=== PATIENT | male | born 1950 | race Caucasian/White ===

== ENCOUNTER 2019-08-12 21:59 | Inpatient (IN) ==
--- NOTE | 2019-08-13 00:19 | EKG Report ---
Test Performed on : 08/12/2019 11:17:52 PM Test Reason : Left Side Rib Pain. Blood Pressure : / mmHG Vent. Rate : 105 BPM Atrial Rate : 105 BPM P-R Int : 148 ms QRS Dur : 084 ms QT Int : 320 ms P-R-T Axes : 013 000 017 degrees QTc Int : 422 ms Sinus tachycardia. with premature atrial complexes. Otherwise normal ECG No previous ECGs available Unconfirmed Result
[2019-08-13 02:04] LABS: BASO# 0.05 X1000 (0.0-0.2); BASO% 0.5 % (0.0-0.8); EOS# 0.26 X1000 (0.0-0.7); EOS% 2.5 % (0.0-10.0); HEMATOCRIT 44.3 % (42.0-52.0); HEMOGLOBIN 14.8 g/dL (14.0-18.0); IMM GRAN# 0.08 X1000 (0.0-0.04); IMM GRAN% 0.8 % (0.0-0.5); LYMPH# 1.79 X1000 (1.2-3.4); LYMPH% 17.1 % (20.5-51.1); MCH 29.2 PG (27-31); MCHC 33.4 g/dL (33-37); MCV 87.4 FL (81-99); MONO# 0.84 X1000 (0.11-0.59); MPV 10.5 FL (7.4-10.4); NEUT# 7.46 X1000 (1.4-6.5); NEUT% 71.1 % (42.2-75.2); PLT 218 X1000 (130-400); RBC 5.07 XMIL (4.7-6.1); RDW 13.6 % (11.5-14.5); WBC 10.48 X1000 (4.8-10.8)
[2019-08-13 02:33] LABS: AGAP 11; ALB/GLOB RATIO 1.3; ALBUMIN 4.1 g/dL (3.5-5.0); ALKALINE PHOSPHATASE 72 U/L (32-122); BUN 22 mg/dL (8-22); CALCIUM 9.5 mg/dL (8.8-10.2); CHLORIDE 106 mmol/L (98-107); CK PROFILE 175 U/L (24-204); COSMO 288; CREATININE 1.2 mg/dL (0.7-1.2); ESTIMATED GFR > 60; GLUCOSE 167 mg/dL (70-104); GOT 17 U/L (10-34); GPT 19 U/L (10-44); POTASSIUM 4.6 mmol/L (3.5-5.1); SODIUM 141 mmol/L (136-145); TCO2 24 mmol/L (25-35); TOTAL BILIRUBIN 0.35 mg/dL (0.20-1.00); TOTAL PROTEIN 7.2 g/dL (6.3-8.3)
[2019-08-13] MEDS ORDERED: HEPARIN IV ONE (04:00)
--- NOTE | 2019-08-13 04:08 | PROVIDER DOCUMENTATION ---
This chart was entered by Nasrin Hu Scribe, acting as scribe for Kevon Messina DO. HPI-Chest Pain - General Chief Complaint: Rib Pain Stated Complaint: PAIN IN (L) RIBS AND SHOULDER Time Seen by Provider: 08/13/19 01:16 Source: patient Allergies/Adverse Reactions: Patient Allergies Allergy/AdvReac Type Severity Reaction Status Date / Time oxycodone HCl * Allergy Unknown Verified 08/13/19 01:06 [From OxyContin] Home Medications: Home Medication List Medication Instructions Recorded Confirmed Last Taken Type Esomeprazole [Nexium] 40 mg PO DAILY 11/18/13 08/13/19 11/18/13 11:00 History Levothyroxine [Synthroid] 125 mcg PO QAM 11/18/13 08/13/19 11/18/13 08:00 History Sumatriptan Succinate [Imitrex] 100 mg PO PRN PRN 08/13/19 08/13/19 Unknown History - History of Present Illness-CP Nature of Presenting Problem: pt is a 68 yr old male presenting with complaint of left lower chest pain. pain radiates to left shoulder, pain worse with deep inspiration. pt denies any shortness of breath, nausea or vomiting. pt also admits 1 week ago he had painful/tender area to left calf, pt reports he was able to feel knot in tender area. PCP ordered nsaids, pt reports he has taken nsaids with relief. pt admits family hx of blood clots, no personal hx of same Location: reports: other (left lower chest) Chest Pain Radiation: reports: shoulders (left shoulder) Quality of Pain: reports: sharp Severity in ED: moderate Onset/Duration: this evening Timing: still present Context/Activities at Onset: reports: light activity (driving) Modifying Factors: improves with: breathing (deep breathing increases pain) Associated Symptoms: denies: back pain, diaphoresis, nausea, shortness of breath , syncope, vomiting Nitro Today/Relief: no nitro taken today Aspirin Treatment Today: no aspirin today Prior Chest Pain/Cardiac Workup: reports: no prior chest pain, no prior cardiac workup Similar Symptoms Previously?: No Recently Seen Here or By Another Healthcare Provider: Yes (1 week ago seen by PCP) Review of Systems - Adult - REVIEW OF SYSTEMS - ADULT Constitutional: denies: fever, fatique Eyes: reports: no symptoms reported Ears, Nose, Mouth & Throat: reports: no symptoms reported Cardiovascular: reports: chest pain. denies: palpitations, syncope Respiratory: reports: pleurisy. denies: cough, dyspnea on exertion, shortness of breath Gastrointestinal: denies: abdominal pain, nausea Genitourinary: reports: no symptoms reported Musculoskeletal: denies: back pain, muscle aches, neck pain Integumentary: reports: no symptoms reported Neurological: denies: dizziness/vertigo, headache/migraines, syncope Psychiatric: reports: no symptoms reported Endocrine: reports: no symptoms reported Hematologic/Lymphatic: reports: no symptoms reported Allergic/Immunologic: reports: no symptoms reported All Other Systems: Reviewed and Negative Past History - Adult - PAST MEDICAL HISTORY-ADULT Review of Records: reports: Old Records Reviewed, Nursing Assessment Review, Medications Reviewed, Social history reviewed & non-contributory. Major Childhood Illnesses: reports: denies history Cardiovascular: reports: denies history Respiratory: reports: denies history Gastrointestinal: reports: GERD Obstetrical/Gynecological: reports: denies history Genitourinary: reports: denies history Musculoskeletal: reports: denies history Neurological: reports: headaches/migraines Endocrine/Immune: reports: thyroid disorder Other Conditions: reports: denies history - PRIOR SURGERIES/PROCEDURES Surgical/Procedure History: reports: appendectomy, orthopedic (extremity) - PRIOR HOSPITALIZATIONS Prior Hospitalizations: reports: none - IMMUNIZATION STATUS Childhood Immunizations: See Nurse Assessment Flu Vaccine: See Nurse Assessment - FAMILY HISTORY Family History: other (blood clot) - SOCIAL HISTORY Smoking: denies Substance Use: alcohol Alcohol Use Frequency: rarely Living Situation: family Physical Exam-General - PHYSICAL EXAM-ADULT Initial Vital Signs Reviewed: Yes - CONSTITUTIONAL General Appearance: appears well, alert, no apparent distress - EYES Eyes: PERRL/EOMI - HEAD, EARS, NOSE, MOUTH & THROAT HENMT: normocephalic/atraumatic, moist mucous membranes, normal ENT inspection - NECK Neck: non-tender, full range of motion, supple, normal inspection - RESPIRATORY Respiratory: chest non-tender, lungs clear, normal breath sounds, no respiratory distress, no accessory muscle use, pain on inspiration. negative: splinting - CARDIOVASCULAR Cardiovascular: normal peripheral pulses, regular rate, rhythm, no edema - GASTROINTESTINAL (ABDOMEN) Abdominal Exam: normal bowel sounds, non tender, soft - LYMPHATIC Lymphatic: no adenopathy - MUSCULOSKELETAL Back Exam: normal inspection, no CVA tenderness, no vertebral tenderness Extremity: normal range of motion, non-tender, normal gait, normal inspection - SKIN Integumentary: normal color, normal turgor, warm/dry - NEUROLOGIC Neurologic: grossly normal, no motor/sensory deficits - PSYCHIATRIC Psych/Mental Status: normal mood/affect Progress - PLAN OF CARE/RESULTS Progress/Plan/Lab Results: Vital Signs - 8 hr 08/12/19 21:59 Temperature 99.0 F Pulse Rate 87 Respiratory Rate 19 Blood Pressure 166/89 O2 Sat by Pulse Oximetry 98 Laboratory Results - last 24 hr 08/13/19 08/13/19 08/13/19 01:40 01:40 01:40 WBC 10.48 RBC 5.07 Hgb 14.8 Hct 44.3 MCV 87.4 MCH 29.2 MCHC 33.4 RDW Std Deviation 13.6 Plt Count 218 MPV 10.5 H Immature Gran % (Auto) 0.8 H Neut % (Auto) 71.1 Lymph % (Auto) 17.1 L Call[place] % (Auto) 8.0 Eos % (Auto) 2.5 Baso % (Auto) 0.5 Immature Gran # (Auto) 0.08 H Neut # (Auto) 7.46 H Lymph # (Auto) 1.79 [place] # (Auto) 0.84 H Eos # (Auto) 0.26 Baso # (Auto) 0.05 Sodium 141 Potassium 4.6 Chloride 106 Carbon Dioxide 24 L Anion Gap 11 BUN 22 Creatinine 1.2 Estimated GFR/1.73 m2 > 60 BUN/Creatinine Ratio 18 Glucose 167 H Calculated Osmolality 288 Calcium 9.5 Total Bilirubin 0.35 AST 17 ALT 19 Alkaline Phosphatase 72 Creatine Kinase 175 Troponin T High Sens 10 Total Protein 7.2 Albumin 4.1 Globulin 3.1 Albumin/Globulin Ratio 1.3 Orders Category Date Time Status CHEST-2 VIEWS [RAD] Stat Exams 08/12/19 22:[address] ANGIOGRM PULMONARY ARTERIES [CT] Stat Exams 08/13/19 01:26 Taken CBC WITH ELECTRONIC DIFF [HEME] Stat Lab 08/13/19 01:40 Completed CK PROFILE [SP CHEM] Stat Lab 08/13/19 01:40 Completed COMPREHENSIVE METABOLIC PANEL [CHEM] Stat Lab 08/13/19 01:40 Completed TROPONIN T HIGH SENSITIVITY Stat Lab 08/13/19 01:40 Completed Heparin Med 08/13/19 04:00 Discontinued 5,000 unit IV NOW ONE EKG [EKG] Stat Ther 08/12/19 23:13 Draft Result Diagrams: 08/13/19 01:40 08/13/19 01:40 - EKG 1 Time of EKG reading by physician:: 23:17 EKG Read and Signed by:: Kevon Messina EKG Interpretation (*Must complete 3 of following elements*): Abnormal Rate: 105 Rhythm: sinus tach with PACs [place]: normal QRS: other (PACs) OR Interval: normal ST Wave: normal - CONSULTS/PCP/HOSPITALIST Notification #1 *Consult/PCP/Hospitalist*: Dr Dubois Time Discussed: 04:07 Consult Disposition: Will see in ED Departure - Departure Date of Disposition Decision: 08/13/19 Time of Disposition Decision: 04:07 DIAGNOSIS: Pulmonary emboli Qualifiers: Pulmonary embolism type: multiple subsegmental (without acute cor pulmonale) Qualified Code(s): I26.94 - Multiple subsegmental pulmonary emboli without acute cor pulmonale Disposition: ADMITTED INPATIENT 09 Certified Medical Emergency: Emergent Condition: Serious Referrals and Follow-Ups: None,PCP [Primary Care Provider] - - Critical Care Note This patient required my direct & personal management of CC.: No Attestation - Physician/ CROW Attestation Patient care was provided by Advanced Practice Provider:: No The physician spent face to face time with patient:: Yes Advanced Practice Provider documentation review:: Supervising physician onsite and consulted in the evaluation and care of this patient. The physician did have a face to face encounter with the patient. This chart was documented by the indicated scribe, (Nasrin Hu Scribe) and accurately reflects the services I performed and decisions made by , Kveon Moralez DO, as attested by the provider's signature.
[2019-08-13] MEDS ORDERED: ZOFRAN IV PRN (04:40)
[2019-08-13] MEDS: HEPARIN 25,000 UNITS/D5W 25,000 UNIT/250 ML IV.SOLN IV SCH ×2 (04:53→21:17)
--- NOTE | 2019-08-13 05:48 | HISTORY AND PHYSICAL ---
PRIMARY CARE PROVIDER: None, just visits [facility] occasionally. CHIEF COMPLAINT: Chest pain. HISTORY OF PRESENTING ILLNESS: A 68-year-old male with a history of GERD, hypothyroidism and migraines, who had presented to emergency department after he was having chest pain worse with inspiration. He states it was mostly toward his rib region and he was having some shortness of breath. He was seen in the ED. He had imaging done which did show bilateral pulmonary thromboembolism. Due to his presenting symptoms and findings, he will require ICU admission for further management. At the time of my examination, he denied any headache, fever, chills, hemoptysis, melena, weight changes, but complained of chest pain. PAST MEDICAL HISTORY: Includes GERD, hypothyroidism, migraines. PAST SURGICAL HISTORY: Left knee surgery, appendectomy. ALLERGIES: No known drug allergies. CURRENT MEDICATIONS: Include sumatriptan 100 mg p.o. p.r.n., Nexium 40 mg p.o. daily, levothyroxine 125 mcg p.o. daily. SOCIAL HISTORY: No history of smoking. Admits to social alcohol use. Denies any illicit drug use. FAMILY HISTORY: No history of coronary artery disease. REVIEW OF SYSTEMS: Fourteen point review of systems is as listed in HPI. Other systems negative. PHYSICAL EXAMINATION: GENERAL: Cooperative, friendly male. He is resting more comfortably now. VITAL SIGNS: Temperature 99.0 degrees, pulse 87, respiration 19, blood pressure 166/89. HEENT: Atraumatic, normocephalic. Extraocular movements intact. PERRLA. NECK: No masses. CHEST: Clear to auscultation. CARDIOVASCULAR: Regular rate and rhythm. S1 and S2. ABDOMEN: Soft. Positive bowel sounds. EXTREMITIES: No edema. NEUROLOGIC: She is awake, alert, oriented x3. GENITOURINARY: No bladder distention. SKIN: Warm. LABORATORIES AND STUDIES: WBCs 10.48, hemoglobin 14.8, hematocrit 44.3, platelets 218,000. Sodium 141, potassium 4.6, chloride 106, CO2 is 24, BUN is 22, creatinine is 1.2, glucose 167. ASSESSMENT: This is a 68-year-old male with a history of gastroesophageal reflux disease, hypothyroidism and migraines, who had presented to emergency department with 1-day history of having chest pain. He was seen in the ED. He had imaging done which did show bilateral pulmonary thromboembolisms. Subsequently, he will require admission for further management. 1. Bilateral pulmonary thromboembolisms. 2. Gastroesophageal reflux disease. 3. Hypothyroidism. PLAN: 1. We will admit patient to ICU. 2. We will start patient on heparin drip per protocol. 3. We will continue with strict bedrest. 4. Restart other home medications. 5. The patient is on heparin, that will suffice for the DVT prophylaxis. 6. We will continue to follow, and reassess, and make further recommendation based on patient's clinical course. cc: Artie Dubois MD
--- NOTE | 2019-08-13 08:56 | Diag Imaging Result Doc PS360 ---
EXAM: CHEST-2 VIEWS INDICATION: Rib Pain TECHNIQUE: 2 views COMPARISON: None. FINDINGS: Inspiration is suboptimal. There is evidence of minimal left basilar atelectasis. The lungs are grossly clear, otherwise. There is no discrete pleural fluid collection or pneumothorax. The cardiomediastinal silhouette and central vasculature are grossly unremarkable. IMPRESSION: Minimal left basilar atelectasis. No definite acute chest pathology by plain radiograph, otherwise. Electronically signed by Jean Gallegos 08/13/2019 8:54 AM
[2019-08-13] MEDS ORDERED: APRESOLINE IV PRN (09:49)
--- NOTE | 2019-08-13 09:57 | Diag Imaging Result Doc PS360 ---
EXAM: CT ANGIOGRM PULMONARY ARTERIES INDICATION: chest pain TECHNIQUE: This exam was performed using automated exposure control, adjustment of mA or kV according to patient size, and/or use of iterative reconstruction technique. Thin section axial images and 3-D MIPS were obtained. COMPARISON: None. FINDINGS: There are multiple segmental and subsegmental urinary artery filling defects involving the lower lobes bilaterally as well as the left upper lobe consistent with acute pulmonary emboli, more extensive on the left. The clot burden is moderate. There is no evidence of aortic dissection or aneurysm. There is no cardiomegaly and no evidence of right heart strain. There is no significant mediastinal or hilar lymphadenopathy. There is subsegmental atelectasis involving the lingular and left lower lobe at the base. No airspace consolidations are appreciated. The lungs are grossly clear, otherwise. There is no pleural fluid collection and no pneumothorax. Limited views of the upper abdomen reveals a cystic appearing lesion at the upper pole of the right kidney that is higher density than simple fluid indicating internal proteinaceous debris or blood products. There is no associated enhancement. It is only slightly larger than the prior CT from 2012. IMPRESSION: 1.Bilateral acute pulmonary emboli that is more extensive on the left as detailed above. 2.Mild subsegmental atelectasis at the left lung base. No evidence of pulmonary infarct. 3.Nonenhancing complex cyst containing blood products or proteinaceous debris at the upper pole of the right kidney that is also seen on a prior CT from 2011. Electronically signed by Jean Gallegos 08/13/2019 9:55 AM
[2019-08-13] MEDS: NEXIUM PO SCH (10:00)
[2019-08-13] MEDS: SYNTHROID PO SCH (10:00)
[2019-08-13] MEDS ORDERED: HEPARIN IV PRN (12:05)
[2019-08-13] MEDS ORDERED: TYLENOL PO PRN (20:06)
[2019-08-14] MEDS ORDERED: NORCO-5 PO ONE (00:02)
[2019-08-14 05:30] LABS: BASO# 0.07 X1000 (0.0-0.2); BASO% 0.7 % (0.0-0.8); EOS# 0.27 X1000 (0.0-0.7); EOS% 2.8 % (0.0-10.0); HEMATOCRIT 47.2 % (42.0-52.0); HEMOGLOBIN 15.9 g/dL (14.0-18.0); IMM GRAN# 0.07 X1000 (0.0-0.04); IMM GRAN% 0.7 % (0.0-0.5); LYMPH# 1.82 X1000 (1.2-3.4); LYMPH% 18.6 % (20.5-51.1); MCH 29.5 PG (27-31); MCHC 33.7 g/dL (33-37); MCV 87.6 FL (81-99); MONO# 0.95 X1000 (0.11-0.59); MONO% 9.7 % (1.7-9.3); NEUT# 6.61 X1000 (1.4-6.5); NEUT% 67.5 % (42.2-75.2); PLT 220 X1000 (130-400); RBC 5.39 XMIL (4.7-6.1); RDW 13.3 % (11.5-14.5); WBC 9.79 X1000 (4.8-10.8)
[2019-08-14 05:38] LABS: AGAP 13; BUN 16 mg/dL (8-22); CHLORIDE 102 mmol/L (98-107); COSMO 278; CREATININE 1.1 mg/dL (0.7-1.2); ESTIMATED GFR > 60; GLUCOSE 120 mg/dL (70-104); POTASSIUM 4.6 mmol/L (3.5-5.1); SODIUM 138 mmol/L (136-145); TCO2 23 mmol/L (25-35)
[2019-08-14] MEDS: HEPARIN 25,000 UNITS/D5W 25,000 UNIT/250 ML IV.SOLN IV SCH (05:49)
[2019-08-14] MEDS: SYNTHROID PO SCH (06:09)
[2019-08-14] MEDS: NEXIUM PO SCH (08:05)
[2019-08-14] MEDS ORDERED: LOVENOX SUBQ SCH (08:45)
--- NOTE | 2019-08-14 09:16 | PROGRESS NOTE ---
DATE: 08/14/2019 SUBJECTIVE: The patient seems to be doing well. As per the patient, he had severe pain during the night, and he received some pain medication. His vital signs are stable. I requested an echocardiogram. He has a family history of blood clots apparently. I was informed that the lower extremity ultrasound was positive for a DVT of the left lower extremity, and he has bilateral PEs. I will stop the heparin drip, and start this patient on Lovenox subcutaneously. I have requested an evaluation by Hematology/Oncology Department. Oxygen saturation has been stable on room air. He has been slightly tachycardic on and off in the 100s. Blood pressure has been stable. I will continue keeping an eye on this patient in the ICU. I will wait for the echocardiogram and Hematology evaluation. I believe this patient can be discharged in the next 24 to 48 hours. OBJECTIVE: Vital Signs: Temperature 98.6 degrees, pulse 99, respiratory rate 20, blood pressure 101/81, oxygen saturation 94% on room air. HEENT: Head normocephalic. No trauma. PERRLA. Neck: Supple. No JVD. No masses. Central trachea. Chest: Clear to auscultation. Some crepitus at the bases, mostly on the left side. Abdomen: Soft, nontender, nondistended. No hepatosplenomegaly. Extremities: No edema, no clubbing, no cyanosis. Neurological: The patient is awake, alert. He is oriented x3. No focal deficits. LABORATORY DATA: WBC 9.7, hemoglobin 15.9, hematocrit 47.2, platelets 220,000. Sodium 138, potassium 4.6, chloride 102, bicarbonate 23, BUN 16, creatinine 1.1, glucose 120, calcium 9. ASSESSMENT AND PLAN: 1. Bilateral pulmonary embolism, left lower extremity deep venous thrombosis. This patient has been placed on a heparin drip, and I will go ahead and stop it and put him on Lovenox therapeutic. We will continue with this management. I have requested a hypercoagulable state laboratory. Also, I have requested the director health/oncologist to evaluate this patient. Apparently, he has some family history of blood clots and/or taking blood thinners. I am not quite sure if this is because of blood clots or atrial fibrillation, and he does not know either. 2. Gastroesophageal reflux disease. Continue with Nexium. 3. Hypothyroidism. Continue with levothyroxine. cc: Linus Payton MD
--- NOTE | 2019-08-14 15:37 | ECHO REPORT ---
ORDER DATE: 08/13/2019 INTERPRETING PHYSICIAN: Dr. Mushtaq Sidhu. ECHOCARDIOGRAPHIC MEASUREMENTS: 1. Interventricular septum: 1.2 cm. 2. Left ventricular posterior wall: 1.3 cm. 3. Diastolic diameter: 4.4 cm. 4. Left atrium: 3.8 cm. 5. Aorta: 3.4 cm. SUMMARY OF THE 2-DIMENSIONAL IMAGIN. Aortic valve leaflets were trileaflet. 2. Pulmonic valve was normal. 3. There was mild pulmonary regurgitation. 4. Mitral valve leaflets were normal. There is mitral annular calcification. 5. Normal left ventricular cavity size. Estimated ejection fraction of 60 to 65 percent. 6. Normal right ventricular cavity size and function. 7. There is mild mitral regurgitation. 8. Grade 1 diastolic dysfunction. 9. There was mild tricuspid regurgitation. Peak velocity across the tricuspid valve was 2.6 m/sec. 10. Pulmonary systolic pressure of 38 mmHg. 11. Peak velocity across the aortic valve less than 2 m/sec. There is no aortic stenosis. There is mild aortic regurgitation. 12. There was no pericardial effusion or obvious intracardiac mass or thrombus seen. cc: MD Linus Garcia MD
[2019-08-14] MEDS: XARELTO PO SCH (18:09)
[2019-08-15 06:14] LABS: AGAP 12; BUN 19 mg/dL (8-22); CHLORIDE 102 mmol/L (98-107); COSMO 279; CREATININE 1.1 mg/dL (0.7-1.2); ESTIMATED GFR > 60; GLUCOSE 114 mg/dL (70-104); SODIUM 138 mmol/L (136-145); TCO2 24 mmol/L (25-35)
[2019-08-15] MEDS: SYNTHROID PO SCH (06:31)
[2019-08-15 08:18] VITALS: BP 131/83
[2019-08-15] MEDS: XARELTO PO SCH (08:27)
[2019-08-15] MEDS: NEXIUM PO SCH (08:27)
--- NOTE | 2019-08-15 13:53 | DISCHARGE SUMMARY ---
ADMISSION DATE: 08/13/2019 DISCHARGE DATE: 08/15/2019 DIAGNOSES: 1. Bilateral pulmonary thromboembolisms. 2. Gastroesophageal reflux disease. 3. Hypothyroid. DIAGNOSTICS: 1. Chest x-ray revealed minimal left basilar atelectasis. No definite acute chest pathology. 2. CTA pulmonary arteries revealed bilateral acute pulmonary emboli, more extensive on the left. Mild subsegmental atelectasis at the left base. No evidence of pulmonary infarct. 3. Echocardiogram revealed ejection fraction of 60 to 65 percent with normal left ventricular cavity size, grade 1 diastolic dysfunction, no pericardial effusion or obvious intracardiac mass or thrombus seen. HOSPITAL COURSE: Mr. Barr presented to the emergency room complaining of chest pain that was worse on inspiration. A CTA pulmonary was done. He was found to have bilateral pulmonary embolisms. He was initially started on heparin drip, and has been transitioned over to Xarelto for discharge. DISCHARGE VITAL SIGNS: Blood pressure is 131/83 with a heart rate of 83, respirations 16, temperature is 98.5 degrees oral with room air saturations 94 to 96 percent. DISCHARGE PHYSICAL EXAMINATION: Cardiovascular: Regular rate and rhythm. S1 and S2 appreciated. No murmur. Pulmonary: Breath sounds are clear. No increased work of breathing noted. Chest rise and falls and symmetric with respiration. Gastrointestinal: Abdomen is soft, nontender, and nondistended. Bowel sounds in all 4 quadrants. Neurologic: He is alert and oriented x3. Extremities: No clubbing, cyanosis, or edema. DISCHARGE MEDICATIONS: 1. Imitrex 100 mg p.o. p.r.n. as directed. 2. Nexium 40 mg p.o. daily. 3. Levothyroxine 125 mcg p.o. daily. 4. [place] 5 q.6 hours p.r.n. 5. Xarelto 15 mg p.o. b.i.d. x20 days, and then Xarelto 20 mg p.o. daily. FOLLOWUP: 1. Dr. Violeta Nunes. He needs to call our office to schedule an appoint appointment. 2. He is being discharged home in stable condition with family members. 3. He was instructed to call to be seen sooner or return to the ER for any syncope, dizziness, chest pain, palpitations, any shortness of breath, cough, any bloody cough, any black or bloody vomitus or stools, any bloody nose, any bruising, temperature greater than 101, or for any questions or concerns that he may have. TIME SPENT: This a greater than 30 minute discharge. Dictated by PRESTON Cotton for Linus Payton MD cc: PRESTON Cotton MD
--- NOTE | 2019-08-15 17:53 | Extremity Venous Study ---
PROCEDURE NAME: Venous U/S Bilateral Legs - 08/13/2019 REFERRING PHYSICIAN: Artie Dubois MD. READING PHYSICIAN: Karel Whalen MD. INSTITUTIONAL RESEARCH COORDINATOR: Rick. INDICATION: Pulmonary embolism. FINDINGS: The deep and superficial veins of the right lower extremity were imaged throughout their course. They are compressible, patent without thrombus. On the left side, however, there is thrombosis of the left popliteal, posterior tibial, and peroneal veins and a superficial vein in the left calf. INTERPRETATION: Acute deep venous thrombosis and superficial venous thrombosis of the left calf veins as described above. cc: MD Artie Betancourt MD
--- NOTE | 2019-08-18 14:30 | HEMO/ONC CONSULTATION ---
DATE: 08/18/2019 REQUESTED BY: The hospitalist service. REASON FOR CONSULTATION: Pulmonary embolism. HISTORY OF PRESENT ILLNESS: Mr. Barr is a 68-year-old male who initially presented to the [facility] Emergency Department complaining of pleuritic chest pain that was increasingly worsening. He had rather acute onset of his pain. He had associated shortness of breath. He was brought to the emergency department. Imaging revealed him to have bilateral pulmonary thromboembolisms. He has been now admitted to the ICU for close monitoring. He is currently in no acute distress. PAST MEDICAL HISTORY: 1. GERD. 2. Hypothyroidism. 3. Migraines. PAST SURGICAL HISTORY: 1. Left knee surgery. 2. Appendectomy, neither of which have been recently. SOCIAL HISTORY: Patient denies any tobacco use. He does drink alcohol socially. Denies any illicit drug use. FAMILY HISTORY: Negative for coronary artery disease. Does report that his father had a blood clot. He reports that his father was on Coumadin for several years. REVIEW OF SYSTEMS: Twelve point review of systems has been completed and is negative except for as expressed in the HPI. PHYSICAL EXAM: Vital Signs: Temperature 98.6 degrees, heart rate 91, respirations 20, blood pressure 120/77, O2 saturation 94% on room air. General: This is a male sitting in his hospital bed in the ICU. He is in no acute distress. HEENT: Head normocephalic, atraumatic. Eyes: Pupils appear to be equal, round, reactive. Ears, nose, throat, neck, and mouth: Oral mucosa appears to be normal. Gross auditory acuity is intact. Cardiovascular: Regular rate. Respiratory: No labored breathing. Gastrointestinal: Abdomen appears to be nondistended. Musculoskeletal: No obvious bony abnormality is noted. Neurologic: Patient is alert and oriented and is able to answer questions. He does not appear to be in any distress. IMAGING: Bilateral lower extremity Dopplers show an acute DVT and superficial venous thrombosis in the left calf. CT angiogram shows bilateral acute pulmonary emboli that are more extensive in the left. ASSESSMENT AND PLAN: 1. New pulmonary thromboembolism and deep venous thrombosis. Patient does report a family history. He denies any inactivity prior to diagnosis. In general, he is active. He is already on therapeutic Lovenox which he can continue while he is in the hospital. He seems to be hemodynamically stable and can be transitioned to oral novel anticoagulant upon discharge. We will follow up on the hypercoagulable workup that has already been ordered. We can see the patient as an outpatient to go over those results. We will then determine the length of anticoagulation the patient may need. 2. Gastroesophageal reflux disease. He will continue Nexium. 3. Hypothyroidism. He continues on levothyroxine per the primary team. We want to thank you for consulting us. We will continue to follow along and adjust our treatment plan per his hospital course. Dictated by BESSY De La Cruz for Violeta Nunes MD cc: Violeta Nunes MD
== END 2019-08-15 11:34 | disposition home or self-care (01) | DRG 176 ==
LOC: ED 21:59 → EDIPHOLD 08-13 05:38 → SUATTDRO 08-13 05:38 → ICU 08-13 07:55 → 2N 08-14 22:53
PROVIDERS: ATTEND Internal Medicine